=== PATIENT | male | born 1970 | race Caucasian/White ===

== ENCOUNTER → 2024-08-30 | Outpatient (CLI) | payer BC, SELFPAY ==
[2024-08-30 11:38] LABS: Alanine Aminotransferase 23 U/L (10-49); Albumin, Serum 4.6 gm/dL (3.5-5.0); Alkaline Phosphatase 101 U/L (46-116); Aspartate Amino Transferase 20 U/L (0-34); Bilirubin,Direct 0.3 mg/dL (0.0-0.3); Cardiac Risk Estimate 2.9 RATIO (4.0-6.7); Cholesterol 140 mg/dL (132-200); HDL Cholesterol 49 mg/dL (40-60); LDL Cholesterol,Calculated 70 mg/dL (0-130); Triglycerides 104 mg/dL (30-150)
== END | disposition home or self-care (01) ==
PROVIDERS: PCP Family Medicine; Referring Provider Family Medicine; Visit Provider Family Medicine
DX: E78.5 Hyperlipidemia, unspecified (principal); B35.1 Tinea unguium; Z13.89 Encounter for screening for other disorder
CPT/HCPCS: 36415; 80061; 80076